=== PATIENT | male | born 1980 | race Caucasian/White ===

== ENCOUNTER 2020-10-23 18:14 | Emergency (ER) | payer OTHER ==
[2020-10-23] MEDS ORDERED: Fentanyl 100 MCG/2 ML VIAL ONE (18:38)
[2020-10-23] MEDS ORDERED: PROPOFOL 20 ML ONE (18:38)
[2020-10-23] MEDS ORDERED: Ondansetron PF 4 MG/2 ML Vial ONE (18:38)
--- NOTE | 2020-10-23 18:56 | RAD ---
Right shoulder 2 views HISTORY: Injury. FINDINGS: There is anterior and inferior displacement of the right humeral head in relation to the ac romion. Humeral head lies immediately inferior to the coracoid process. Acromioclavicular alignment is maintained. No fracture fragments evident. IMPRESSION : Right shoulder dislocation.
--- NOTE | 2020-10-23 19:28 | RAD ---
Right shoulder 2 views HISTORY: Shoulder dislocation. COMPARISON: Earlier exam on the same date. FINDINGS: Glenohumeral alignment is now within normal limits. No fracture fragments are apparent. IMPRESSION : Interval reduction of right shoulder dislocation.
[2020-10-23] MEDS ORDERED: Ketorolac Tromethamine 30 MG/ML VIAL ONE (19:44)
[2020-10-23] MEDS ORDERED: HYDROcodone/Acetaminophen 10/325 mg Tablet ONE (20:26)
== END 2020-10-23 20:32 | disposition home or self-care (01) ==
LOC: ERS 18:14
DX: R56.9 Unspecified convulsions (principal); S43.034A Inferior dislocation of right humerus, initial encounter; S42.141A Displaced fracture of glenoid cavity of scapula, right shoulder, initial encounter for closed fracture; F17.210 Nicotine dependence, cigarettes, uncomplicated; Z79.891 Long term (current) use of opiate analgesic; Z79.899 Other long term (current) drug therapy; W19.XXXA Unspecified fall, initial encounter
CPT/HCPCS: 23650; 96374; 96375; 99152; 99153; J1885; J2405; J2704; J3010

== ENCOUNTER 2023-09-07 22:09 | Emergency (ER) | payer OTHER ==
[2023-09-07] MEDS ORDERED: levETIRAcetam 500 MG TAB ONE (22:45)
[2023-09-07] MEDS ORDERED: LORazepam 2 MG/ML SYR.(CARPUJECT) ONE (22:46)
== END 2023-09-07 22:57 ==
LOC: ERS 22:09
DX: R56.9 Unspecified convulsions (principal); F17.210 Nicotine dependence, cigarettes, uncomplicated
CPT/HCPCS: 96372; 99284; J2060

== ENCOUNTER 2023-12-23 10:13 | Outpatient (CLI) | payer OTHER | END 2023-12-23 10:14 | disposition home or self-care (01) | LOC: SCSRAD 10:13 | PROVIDERS: ATTEND Family Medicine | DX: S49.91XA Unspecified injury of right shoulder and upper arm, initial encounter (principal); S43.014A Anterior dislocation of right humerus, initial encounter ==

== ENCOUNTER 2023-12-23 11:49 | Emergency (ER) | payer OTHER ==
[2023-12-23] MEDS ORDERED: Thiamine HCl 200 MG/2 ML VIAL ONE (12:26)
[2023-12-23 13:10] LABS: #Monocytes 0.4 thou/uL (0.11-0.59); #Neutrophils 4.8 thou/uL (1.40-6.50); %Basophils 0.2 % (0.0-1.0); %Eosinophils 0.2 % (0.0-10.0); %Lymphocytes 10.7 % (21.0-51.0); %Monocytes 6.3 % (0.0-10.0); %Neutrophils 81.8 % (42.0-75.0); Hematocrit 34.6 % (42.0-52.0); Hemoglobin 12.3 g/dL (14.0-18.0); Mean Corpuscular HGB CONC 35.5 g/dL (32.0-36.0); Mean Corpuscular Hemoglobin 35.4 pg (27.0-31.0); Mean Corpuscular Volume 99.7 fl (78.0-98.0); Mean Platelet Volume 10.6 fL (7.4-10.4); RBC Distribution Width 12.9 % (11.5-14.5); Red Blood Cell (RBC) Count 3.47 mill/uL (4.70-6.10); White Blood Cell (WBC) Count 5.9 10x3/uL (4.8-10.8)
[2023-12-23 13:29] LABS: Platelet Count 75 10x3/uL (130-400)
[2023-12-23] MEDS ORDERED: Ondansetron PF 4 MG/2 ML Vial ONE (13:29)
[2023-12-23] MEDS ORDERED: Morphine 4 MG/ML VIAL ONE (13:29)
[2023-12-23 13:32] LABS: ALT (SGPT) 101 U/L (8-55); AST (SGOT) 289 U/L (5-34); Albumin 3.8 g/dL (3.5-5.0); Alkaline Phosphatase 155 U/L (40-110); Anion Gap 16 mmol/L (10-20); BUN (Urea Nitrogen) 7 mg/dL (8.9-20.6); Bilirubin, Total 1.4 mg/dL (0.2-1.2); Calc. Creatinine Clearance 0 mL/min (70-130); Calcium 9.1 mg/dL (7.8-10.44); Carbon Dioxide 23 mmol/L (22-29); Chloride 98 mmol/L (98-107); Estimated GFR 93; Globulin 3.3 g/dL (2.4-3.5); Glucose 125 mg/dL (70-105); Potassium 3.3 mmol/L (3.5-5.1); Protein, Total 7.1 g/dL (6.0-8.3); Sodium 134 mmol/L (136-145)
[2023-12-23 13:34] LABS: Troponin I Less than 0.010 ng/mL (< 0.028)
[2023-12-23] MEDS ORDERED: LORazepam 2 MG/ML SYR.(CARPUJECT) ONE ×2 (15:01→16:37)
[2023-12-23 16:59] LABS: Lactic Acid 1.1 mmol/L (0.5-2.2)
[2023-12-23 17:02] LABS: Acetaminophen Less than 10 mcg/mL (10.0-30.0); Alcohol Less than 10.0 mg/dL (Less than 10); Salicylate Less than 8.0 mg/dL (15.0-30.0)
== END 2023-12-23 17:58 | disposition left against medical advice (07) ==
LOC: ERS 11:49
DX: S43.014A Anterior dislocation of right humerus, initial encounter (principal); E87.6 Hypokalemia; F10.20 Alcohol dependence, uncomplicated; Y90.0 Blood alcohol level of less than 20 mg/100 ml; R00.0 Tachycardia, unspecified; F17.210 Nicotine dependence, cigarettes, uncomplicated; Y92.094 Garage of other non-institutional residence as the place of occurrence of the external cause
CPT/HCPCS: 23650; 36415; 80053; 80307; 83605; 84146; 84484; 85025; 93005; 96374; 96375; 96376; J2060; J2270; J2405; J3411

== ENCOUNTER 2024-03-23 09:06 | Day surgery (SDC) | payer OTHER ==
[2024-03-19 12:21] VITALS: BMI 23.3
[2024-03-23] MEDS ORDERED: Midazolam HCl 2 mg/2 ml Vial ONE ×2 (11:15→12:02)
[2024-03-23] MEDS ORDERED: Lidocaine 1% PF 5 ML VIAL ONE (11:56)
[2024-03-23] MEDS ORDERED: Propofol 500 MG/50 ML VIAL ONE (11:58)
== END 2024-03-23 13:13 | disposition home or self-care (01) ==
LOC: SDC 09:06
PROVIDERS: ATTEND Internal Medicine Gastroenterology
PROC: 0DBK8ZX Excision of Ascending Colon, Via Natural or Artificial Opening Endoscopic, Diagnostic (ICD-10-PCS; principal; 2024-03-23)
DX: Z12.11 Encounter for screening for malignant neoplasm of colon (principal); K52.9 Noninfective gastroenteritis and colitis, unspecified; K64.9 Unspecified hemorrhoids; G40.909 Epilepsy, unspecified, not intractable, without status epilepticus; I10 Essential (primary) hypertension; F17.210 Nicotine dependence, cigarettes, uncomplicated; Z88.5 Allergy status to narcotic agent
CPT/HCPCS: 88305; J2250; J2704

== ENCOUNTER 2024-05-07 17:39 | Inpatient (IN) | payer OTHER ==
[2024-05-07 18:33] LABS: Hematocrit 30.9 % (42.0-52.0); Hemoglobin 10.8 g/dL (14.0-18.0); Mean Corpuscular Hemoglobin 35.6 pg (27.0-31.0); Mean Platelet Volume 12.9 fL (7.4-10.4); Platelet Count 117 10x3/uL (130-400); RBC Distribution Width 14.3 % (11.5-14.5); Red Blood Cell (RBC) Count 3.03 mill/uL (4.70-6.10)
[2024-05-07 18:50] LABS: Troponin I 0.023 ng/mL (< 0.028)
[2024-05-07 18:52] LABS: ALT (SGPT) 88 U/L (8-55); AST (SGOT) 217 U/L (5-34); Albumin 2.4 g/dL (3.5-5.0); Alkaline Phosphatase 224 U/L (40-110); Anion Gap 34 mmol/L (10-20); BUN (Urea Nitrogen) 21 mg/dL (8.9-20.6); CK (CPK) 611 U/L (30-200); Calc. Creatinine Clearance 0 mL/min (70-130); Calcium 7.7 mg/dL (7.8-10.44); Carbon Dioxide 22 mmol/L (22-29); Chloride 71 mmol/L (98-107); Estimated GFR 58; Globulin 4.5 g/dL (2.4-3.5); Glucose 121 mg/dL (70-105); Lipase 41 U/L (8-78); Potassium 2.8 mmol/L (3.5-5.1); Protein, Total 6.9 g/dL (6.0-8.3); Sodium 124 mmol/L (136-145)
[2024-05-07 19:01] LABS: Anisocytosis SLIGHT = 6-15 cells HPF (0-5); Band 9 % (5-11); Eosinophils 1 % (0-10); Large Platelets 15.2 % (0-5); Lymphocytes 2 % (21-51); Macrocytosis SLIGHT = 6-15 cells HPF (0-5); Monocytes 13 % (0-10); Myelocyte 2 % (0-0); Neutrophil 72 % (42-75); Platelet Adequacy Comment Platelets Decreased; Polychromasia SLIGHT = 2-3 cells HPF (0-2); Promyelocytes 1 % (0-0); Target Cells SLIGHT = 2-5 cells HPF (0-1)
[2024-05-07] MEDS ORDERED: Cefepime 2 GM VIAL ONE (20:03)
[2024-05-07] MEDS ORDERED: Sodium Chloride 0.9% 100 ML ONE (20:04)
[2024-05-07 21:16] LABS: Magnesium 1.4 mg/dL (1.6-2.6)
[2024-05-07 23:14] LABS: Base Excess 5.2 mEq/L (-2.0 to +3.0); Chloride (VBG) 80 mmol/L (98-106); Hematocrit-VBG 30 % (42.0-52.0); Hemoglobin (Hb) 10.3 g/dL (13.1-17.2); Sodium 122 mmol/L (133-146); pH (venous) 7.572 (7.32-7.43)
[2024-05-07] MEDS ORDERED: CALCIUM GLUC 1 GM/NS 50 ML IV Bag ONE (23:16)
[2024-05-07] MEDS ORDERED: Potassium Chloride 20 MEQ (100 mL) BAG ONE (23:16)
[2024-05-07] MEDS ORDERED: Magnesium 2 GM/50 ML BAG (IN WATER) ONE (23:16)
[2024-05-07 23:35] LABS: Lactic Acid 9.1 mmol/L (0.5-2.2)
[2024-05-07 23:45] LABS: Anion Gap 22 mmol/L (10-20); BUN (Urea Nitrogen) 21 mg/dL (8.9-20.6); Calc. Creatinine Clearance 0 mL/min (70-130); Calcium 6.9 mg/dL (7.8-10.44); Carbon Dioxide 25 mmol/L (22-29); Chloride 78 mmol/L (98-107); Estimated GFR 79; Glucose 91 mg/dL (70-105); Potassium 2.2 mmol/L (3.5-5.1); Sodium 123 mmol/L (136-145)
[2024-05-08] MEDS ORDERED: Ondansetron ODT 4 MG TAB PO PRN ×2 (00:49→00:57)
[2024-05-08] MEDS ORDERED: Lorazepam 1 MG TAB PO PRN (00:49)
[2024-05-08] MEDS ORDERED: Lorazepam 2 MG/ML VIAL IM PRN (00:49)
[2024-05-08] MEDS ORDERED: Ondansetron PF 4 MG/2 ML Vial IVP PRN (00:57)
[2024-05-08] MEDS ORDERED: Acetaminophen 650 MG Suppository PR PRN (00:57)
[2024-05-08] MEDS ORDERED: Electrolyte Replacement Protocol 1 EACH FS SCH (01:00)
[2024-05-08] MEDS ORDERED: Dextrose 5%-Lactated Ringers 1,000 ML IV SCH (01:00)
[2024-05-08] MEDS: Magnesium 2 GM/50 ML(in water) 2 GM in Premix 1 BAG IVPB SCH ×2 (01:24→20:28)
[2024-05-08] MEDS: Vancomycin (BATCH) 1.5 GM in Premix 1 BAG IVPB SCH (01:25)
[2024-05-08] MEDS: Potassium Chloride 20 MEQ in Premix 1 BAG IVPB SCH ×2 (01:25→08:59)
[2024-05-08] MEDS: Thiamine HCl 200 MG/2 ML VIAL SLOW IVP SCH (01:35)
[2024-05-08] MEDS: Albumin 25% 25 GM (100 mL) BOT IVPB SCH (01:35)
[2024-05-08] MEDS: Lorazepam 1 MG TAB PO SCH (01:36)
[2024-05-08 01:47] VITALS: BMI 21.9
[2024-05-08] MEDS: Sodium Chloride 0.9% 1,000 ML IV SCH ×2 (02:40→13:25)
[2024-05-08] MEDS: CALCIUM GLUC 1 GM/NS 50 ML 1 GM in Premix 1 BAG IVPB SCH (03:04)
[2024-05-08] MEDS: Calcium Gluconate 4.6 MEQ in Sodium Chloride 0.9% 100 ML IVPB ONE (03:04)
[2024-05-08 07:21] LABS: INR-International Normal Ratio 1.2; Prothrombin Time 14.8 sec (12.0-14.7)
[2024-05-08 07:22] LABS: PTT 35.2 sec (22.9-36.1)
[2024-05-08 07:28] LABS: Lactic Acid 3.9 mmol/L (0.5-2.2)
[2024-05-08 07:45] LABS: ALT (SGPT) 65 U/L (8-55); AST (SGOT) 157 U/L (5-34); Albumin 2.2 g/dL (3.5-5.0); Alkaline Phosphatase 147 U/L (40-110); Anion Gap 14 mmol/L (10-20); BUN (Urea Nitrogen) 19 mg/dL (8.9-20.6); Bilirubin, Total 8.4 mg/dL (0.2-1.2); Calc. Creatinine Clearance 100 mL/min (70-130); Calcium 7.1 mg/dL (7.8-10.44); Carbon Dioxide 31 mmol/L (22-29); Chloride 83 mmol/L (98-107); Estimated GFR 105; Glucose 122 mg/dL (70-105); Potassium 2.4 mmol/L (3.5-5.1); Protein, Total 5.2 g/dL (6.0-8.3); Sodium 126 mmol/L (136-145)
[2024-05-08 07:49] LABS: Hematocrit 22.8 % (42.0-52.0); Hemoglobin 7.9 g/dL (14.0-18.0); Mean Corpuscular HGB CONC 34.6 g/dL (32.0-36.0); Mean Corpuscular Hemoglobin 35.9 pg (27.0-31.0); Mean Corpuscular Volume 103.6 fL (78.0-98.0); Mean Platelet Volume 12.4 fL (7.4-10.4); Platelet Count 84 10x3/uL (130-400); RBC Distribution Width 14.2 % (11.5-14.5)
[2024-05-08] MEDS: Folic Acid 1 MG TAB PO SCH (08:12)
[2024-05-08] MEDS: Famotidine 20 MG TAB PO SCH (08:12)
[2024-05-08] MEDS: Multivit, Therapeutic 1 TAB PO SCH (08:12)
[2024-05-08 08:31] LABS: Amphetamine Not Detected (NotDetected); Barbiturates Screen Not Detected (NotDetected); Benzodiazepine Screen Not Detected (NotDetected); Cocaine Metabolite Screen Not Detected (NotDetected); Methadone Not Detected (NotDetected); Methamphetamine Not Detected (NotDetected); Opiate Screen Detected (NotDetected); Oxycodone Screen Not Detected (NotDetected); Phencyclidine (PCP) Not Detected (NotDetected); THC/Cannabinoid Screen Not Detected (NotDetected); Tricyclic Screen Not Detected (NotDetected)
[2024-05-08] MEDS ORDERED: Famotidine/PF 20 mg/2ml Vial SLOW IVP SCH (09:00)
[2024-05-08] MEDS ORDERED: Multivitamins, Adult 10 ML, Thiamine HCl 100 MG, Folic Acid 1 MG in Dextrose 5 %-0.45 %... IV SCH (09:00)
[2024-05-08 09:03] LABS: Anisocytosis SLIGHT = 6-15 cells HPF (0-5); Band 15 % (5-11); Eosinophils 1 % (0-10); Large Platelets 5.8 % (0-5); Lymphocytes 5 % (21-51); Macrocytosis SLIGHT = 6-15 cells HPF (0-5); Monocytes 3 % (0-10); Neutrophil 76 % (42-75); Platelet Adequacy Comment Significant Decrease; Polychromasia SLIGHT = 2-3 cells HPF (0-2); Reactive Lymphocytes 1 % (0-10); Stomatocytes SLIGHT = 2-5 cells HPF (0-1); Target Cells MODERATE= 6-15 cells HPF (0-1)
[2024-05-08] MEDS: HYDROcodone/Acetaminophen 5/325 mg Tablet PO PRN (12:17)
[2024-05-08 12:33] LABS: Anion Gap 17 mmol/L (10-20); BUN (Urea Nitrogen) 19 mg/dL (8.9-20.6); Calc. Creatinine Clearance 108 mL/min (70-130); Calcium 7.1 mg/dL (7.8-10.44); Carbon Dioxide 28 mmol/L (22-29); Chloride 84 mmol/L (98-107); Estimated GFR 109; Glucose 89 mg/dL (70-105); Magnesium 1.7 mg/dL (1.6-2.6); Potassium 2.8 mmol/L (3.5-5.1); Sodium 126 mmol/L (136-145)
[2024-05-08 12:36] LABS: Lactic Acid 4.9 mmol/L (0.5-2.2)
[2024-05-08] MEDS: Nicotine 21 MG PATCH TOP SCH (14:48)
[2024-05-08 23:09] LABS: Campy jejuni + coli by PCR Negative (Negative); STEC Shiga Toxin 1+2 Negative (Negative); Salmonella spp. by PCR Negative (Negative); Shigella spp + EIEC by PCR Negative (Negative)
[2024-05-09 09:41] LABS: #Basophils 0.05 10x3/uL (0.0-0.2); %Basophils 0.3 % (0.0-1.0); %Eosinophils 0.4 % (0.0-10.0); %Lymphocytes 16.3 % (21.0-51.0); %Monocytes 4.8 % (0.0-10.0); %Neutrophils 60.9 % (42.0-75.0); Hemoglobin 7.6 g/dL (14.0-18.0); Mean Corpuscular HGB CONC 34.1 g/dL (32.0-36.0); Mean Corpuscular Hemoglobin 36.6 pg (27.0-31.0); Mean Corpuscular Volume 107.5 fL (78.0-98.0); Mean Platelet Volume 12.2 fL (7.4-10.4); Platelet Count 71 10x3/uL (130-400); RBC Distribution Width 14.6 % (11.5-14.5); Red Blood Cell (RBC) Count 2.13 mill/uL (4.70-6.10)
[2024-05-09 10:00] LABS: Anisocytosis MARKED = >30 cells HPF (0-5); Band 10 % (5-11); Large Platelets 3.4 % (0-5); Lymphocytes 9 % (21-51); Macrocytosis MARKED = >30 cells HPF (0-5); Metamyelocyte 3 % (0-0); Monocytes 6 % (0-10); Myelocyte 1 % (0-0); Neutrophil 71 % (42-75); Nucleated RBC (Manual Ct) 3 % (0); Ovalocytes SLIGHT = 2-5 cells HPF (0-1); Plasma Cells 1 % (0-0); Platelet Adequacy Comment Platelets Decreased; Polychromasia SLIGHT = 2-3 cells HPF (0-2); RBC Morphology 2; Target Cells MODERATE= 6-15 cells HPF (0-1)
[2024-05-09 10:40] LABS: ALT (SGPT) 100 U/L (8-55); AST (SGOT) 203 U/L (5-34); Albumin 2.1 g/dL (3.5-5.0); Alkaline Phosphatase 173 U/L (40-110); Anion Gap 13 mmol/L (10-20); BUN (Urea Nitrogen) 10 mg/dL (8.9-20.6); Bilirubin, Direct 6.1 mg/dL (0.1-0.3); Bilirubin, Total 7.8 mg/dL (0.2-1.2); Calc. Creatinine Clearance 146 mL/min (70-130); Calcium 7.2 mg/dL (7.8-10.44); Carbon Dioxide 23 mmol/L (22-29); Chloride 95 mmol/L (98-107); Estimated GFR 118; Glucose 122 mg/dL (70-105); Potassium 2.7 mmol/L (3.5-5.1); Protein, Total 5.1 g/dL (6.0-8.3); Sodium 128 mmol/L (136-145)
[2024-05-09] MEDS ORDERED: Potassium Bicarbonate/Cit Ac 20 MEQ TAB PO SCH (11:00)
[2024-05-09] MEDS: NS 0.9% w/ 20 MEQ KCL 1,000 ML/1,000 ML BAG IV SCH (11:36)
[2024-05-09] MEDS: Potassium Chloride 20 MEQ TAB PO SCH ×2 (11:36→17:39)
[2024-05-09] MEDS: Vancomycin HCl 125 MG Capsule PO SCH (11:36)
[2024-05-09] MEDS: Loperamide HCl 2 MG CAP PO PRN (11:41)
[2024-05-09] MEDS: Lorazepam 1 MG TAB PO PRN (21:46)
[2024-05-09] MEDS ORDERED: Dexmedetomidine In 0.9 % NaCl 100 ML IVPB SCH (23:45)
[2024-05-10] MEDS: Lorazepam 0.5 MG TAB PO SCH
[2024-05-10 01:21] LABS: Hematocrit 19.9 % (42.0-52.0); Hemoglobin 6.7 g/dL (14.0-18.0); Mean Corpuscular HGB CONC 33.7 g/dL (32.0-36.0); Mean Corpuscular Hemoglobin 36.8 pg (27.0-31.0); Mean Corpuscular Volume 109.3 fL (78.0-98.0); Mean Platelet Volume 12.4 fL (7.4-10.4); Platelet Count 55 10x3/uL (130-400); RBC Distribution Width 14.9 % (11.5-14.5); Red Blood Cell (RBC) Count 1.82 mill/uL (4.70-6.10)
[2024-05-10 02:09] LABS: Anisocytosis MODERATE=16-30 cells HPF (0-5); Band 20 % (5-11); Hypochromia SLIGHT = 6-15 cells HPF (0-5); Lymphocytes 12 % (21-51); Macrocytosis SLIGHT = 6-15 cells HPF (0-5); Metamyelocyte 3 % (0-0); Monocytes 11 % (0-10); Myelocyte 4 % (0-0); Neutrophil 51 % (42-75); Nucleated RBC (Manual Ct) 2 % (0); Platelet Adequacy Comment Platelets Decreased; RBC Morphology 2; Smudge Cells 15.4 %; Stomatocytes MODERATE= 6-15 cells HPF (0-1)
[2024-05-10 02:28] LABS: Lactic Acid 2.5 mmol/L (0.5-2.2)
[2024-05-10 02:33] LABS: ALT (SGPT) 114 U/L (8-55); AST (SGOT) 187 U/L (5-34); Albumin 1.9 g/dL (3.5-5.0); Alkaline Phosphatase 173 U/L (40-110); Anion Gap 13 mmol/L (10-20); BUN (Urea Nitrogen) 6 mg/dL (8.9-20.6); Bilirubin, Total 7.7 mg/dL (0.2-1.2); Calc. Creatinine Clearance 175 mL/min (70-130); Calcium 7.2 mg/dL (7.8-10.44); Carbon Dioxide 20 mmol/L (22-29); Chloride 99 mmol/L (98-107); Estimated GFR 125; Glucose 107 mg/dL (70-105); Magnesium 1.5 mg/dL (1.6-2.6); Potassium 3.7 mmol/L (3.5-5.1); Protein, Total 4.9 g/dL (6.0-8.3); Sodium 128 mmol/L (136-145)
[2024-05-10] MEDS: Magnesium 2 GM/50 ML(in water) 2 GM in Premix 1 BAG IVPB SCH ×2 (03:13→17:40)
[2024-05-10] MEDS: Lorazepam 1 MG TAB PO PRN (03:22)
[2024-05-10 04:16] LABS: Phosphorus Less than 0.7 mg/dL (2.3-4.7)
[2024-05-10] MEDS: Potassium Phosphate 30 MMOL in Sodium Chloride 0.9% 500 ML IVPB SCH (05:04)
[2024-05-10] MEDS: Albumin 25% 25 GM (100 mL) BOT IVPB SCH (05:04)
[2024-05-10 13:39] LABS: %Basophils 0.4 % (0.0-1.0); %Eosinophils 0.2 % (0.0-10.0); %Lymphocytes 12.4 % (21.0-51.0); %Monocytes 7.7 % (0.0-10.0); %Neutrophils 59.7 % (42.0-75.0); Hematocrit 22.3 % (42.0-52.0); Hemoglobin 7.7 g/dL (14.0-18.0); Mean Corpuscular HGB CONC 34.5 g/dL (32.0-36.0); Mean Corpuscular Hemoglobin 35.5 pg (27.0-31.0); Mean Corpuscular Volume 102.8 fL (78.0-98.0); Mean Platelet Volume 12.5 fL (7.4-10.4); Platelet Count 43 10x3/uL (130-400); RBC Distribution Width 17.3 % (11.5-14.5); Red Blood Cell (RBC) Count 2.17 mill/uL (4.70-6.10)
[2024-05-10 14:02] LABS: Phosphorus 0.8 mg/dL (2.3-4.7)
[2024-05-10] MEDS ORDERED: Potassium Phosphate 30 MMOL in Sodium Chloride 0.9% 250 ML 250 ML IVPB SCH (15:15)
[2024-05-10] MEDS: Potassium Phosphate 30 MMOL in Sodium Chloride 0.9% 250 ML 250 ML IVPB SCH (17:39)
[2024-05-10] MEDS: PHOS-NAK 1 PKT PACK PO SCH (20:14)
[2024-05-11] MEDS: Lorazepam 0.5 MG TAB PO PRN (03:06)
[2024-05-11 05:18] LABS: Hematocrit 19.1 % (42.0-52.0); Hemoglobin 6.4 g/dL (14.0-18.0); Mean Corpuscular HGB CONC 33.5 g/dL (32.0-36.0); Mean Corpuscular Volume 107.3 fL (78.0-98.0); Platelet Count 44 10x3/uL (130-400); RBC Distribution Width 18.8 % (11.5-14.5); Red Blood Cell (RBC) Count 1.78 mill/uL (4.70-6.10)
[2024-05-11 05:22] LABS: ALT (SGPT) 75 U/L (8-55); AST (SGOT) 129 U/L (5-34); Albumin 2.9 g/dL (3.5-5.0); Alkaline Phosphatase 151 U/L (40-110); Anion Gap 14 mmol/L (10-20); BUN (Urea Nitrogen) 5 mg/dL (8.9-20.6); Bilirubin, Total 7.8 mg/dL (0.2-1.2); Calc. Creatinine Clearance 174 mL/min (70-130); Carbon Dioxide 19 mmol/L (22-29); Chloride 106 mmol/L (98-107); Estimated GFR 122; Glucose 110 mg/dL (70-105); Magnesium 2.1 mg/dL (1.6-2.6); Potassium 3.9 mmol/L (3.5-5.1); Protein, Total 4.9 g/dL (6.0-8.3); Sodium 135 mmol/L (136-145)
[2024-05-11 05:51] LABS: Phosphorus 1.1 mg/dL (2.3-4.7)
[2024-05-11 06:05] LABS: Anisocytosis SLIGHT = 6-15 cells HPF (0-5); Band 14 % (5-11); Eosinophils 1 % (0-10); Lymphocytes 6 % (21-51); Macrocytosis SLIGHT = 6-15 cells HPF (0-5); Metamyelocyte 10 % (0-0); Monocytes 9 % (0-10); Myelocyte 6 % (0-0); Neutrophil 51 % (42-75); Nucleated RBC (Manual Ct) 10 % (0); Platelet Adequacy Comment Platelets Decreased; Polychromasia SLIGHT = 2-3 cells HPF (0-2); Reactive Lymphocytes 1 % (0-10); Smudge Cells 4.6 %; Stomatocytes SLIGHT = 2-5 cells HPF (0-1)
[2024-05-11] MEDS: PHOS-NAK 1 PKT PACK PO SCH (06:06)
[2024-05-11] MEDS: Calcium Chloride 1 GM/10 ML Abboject SYRINGE IVP SCH (06:56)
[2024-05-11] MEDS: Furosemide 20 MG (2 mL) VIAL SLOW IVP SCH (06:56)
[2024-05-11] MEDS: Thiamine 100 MG TAB PO SCH (08:03)
[2024-05-11] MEDS: Acetaminophen 325 MG TAB PO PRN (08:10)
[2024-05-11] MEDS: Sodium Phosphate 40 MMOL in Sodium Chloride 0.9% 250 ML 250 ML IVPB SCH (09:16)
[2024-05-11 10:01] LABS: Iron 68 ug/dL (65-175)
[2024-05-11 10:53] LABS: Ferritin 10916.62 ng/mL (22-322)
[2024-05-11 10:54] LABS: Vitamin B12 Greater than 2000 pg/mL (211-911)
[2024-05-11 13:04] LABS: Hematocrit 23.9 % (42.0-52.0); Hemoglobin 8.1 g/dL (14.0-18.0); Platelet Count 44 10x3/uL (130-400)
[2024-05-11 13:16] LABS: Fibrinogen 194 mg/dL (253-463)
[2024-05-11 13:17] LABS: INR-International Normal Ratio 1.3; PTT 37.3 sec (22.9-36.1); Prothrombin Time 16.1 sec (12.0-14.7)
[2024-05-11 13:23] LABS: D-Dimer Test 1.55 mcg/mL (0.27-0.43)
[2024-05-11 13:35] LABS: Phosphorus 2.1 mg/dL (2.3-4.7)
[2024-05-11 14:11] LABS: Iron Binding Capacity, Total 55 mcg/dL (261-462)
[2024-05-11 15:06] LABS: Calcium, Ionized (venous) 0.76 mmol/L (1.16-1.32)
[2024-05-12 00:14] LABS: Hematocrit 22.8 % (42.0-52.0); Hemoglobin 7.8 g/dL (14.0-18.0); Platelet Count 44 10x3/uL (130-400)
[2024-05-12 04:49] LABS: Hematocrit 23.3 % (42.0-52.0); Hemoglobin 7.8 g/dL (14.0-18.0); Mean Corpuscular HGB CONC 33.5 g/dL (32.0-36.0); Mean Corpuscular Hemoglobin 34.2 pg (27.0-31.0); Mean Corpuscular Volume 102.2 fL (78.0-98.0); Mean Platelet Volume 12.9 fL (7.4-10.4); Platelet Count 46 10x3/uL (130-400); RBC Distribution Width 22.6 % (11.5-14.5); Red Blood Cell (RBC) Count 2.28 mill/uL (4.70-6.10)
[2024-05-12 04:57] LABS: ALT (SGPT) 77 U/L (8-55); AST (SGOT) 126 U/L (5-34); Albumin 2.5 g/dL (3.5-5.0); Alkaline Phosphatase 152 U/L (40-110); Anion Gap 16 mmol/L (10-20); BUN (Urea Nitrogen) Less than 4 mg/dL (8.9-20.6); Bilirubin, Total 7.9 mg/dL (0.2-1.2); Calc. Creatinine Clearance 177 mL/min (70-130); Calcium 7.2 mg/dL (7.8-10.44); Carbon Dioxide 16 mmol/L (22-29); Chloride 107 mmol/L (98-107); Estimated GFR 123; Globulin 2.4 g/dL (2.4-3.5); Glucose 99 mg/dL (70-105); Magnesium 1.6 mg/dL (1.6-2.6); Potassium 3.1 mmol/L (3.5-5.1); Protein, Total 4.9 g/dL (6.0-8.3); Sodium 136 mmol/L (136-145)
[2024-05-12 05:08] LABS: Phosphorus 1.6 mg/dL (2.3-4.7)
[2024-05-12] MEDS: Magnesium 2 GM/50 ML(in water) 2 GM in Premix 1 BAG IVPB SCH (05:35)
[2024-05-12 06:16] LABS: Anisocytosis SLIGHT = 6-15 cells HPF (0-5); Band 17 % (5-11); Lymphocytes 7 % (21-51); Macrocytosis SLIGHT = 6-15 cells HPF (0-5); Metamyelocyte 6 % (0-0); Monocytes 5 % (0-10); Myelocyte 7 % (0-0); Neutrophil 58 % (42-75); Nucleated RBC (Manual Ct) 29 % (0); Platelet Adequacy Comment Platelets Decreased; Polychromasia SLIGHT = 2-3 cells HPF (0-2); Smudge Cells 16.8 %; Toxic Granulation SLIGHT
[2024-05-12] MEDS: PHOS-NAK 1 PKT PACK PO SCH (07:03)
[2024-05-12] MEDS ORDERED: Potassium Chloride 20 MEQ TAB PO SCH (08:00)
[2024-05-12] MEDS: Potassium Phosphate 15 MMOL in Sodium Chloride 0.9% 100 ML IVPB SCH (09:09)
[2024-05-12] MEDS: Potassium Chloride 20 MEQ in Premix 1 BAG IVPB SCH (09:09)
[2024-05-13 05:17] LABS: Hematocrit 24.1 % (42.0-52.0); Hemoglobin 7.9 g/dL (14.0-18.0); Mean Corpuscular HGB CONC 32.8 g/dL (32.0-36.0); Mean Corpuscular Volume 106.6 fL (78.0-98.0); Mean Platelet Volume 12.3 fL (7.4-10.4); Platelet Count 62 10x3/uL (130-400); RBC Distribution Width 23.1 % (11.5-14.5); Red Blood Cell (RBC) Count 2.26 mill/uL (4.70-6.10)
[2024-05-13 05:43] LABS: Anisocytosis MODERATE=16-30 cells HPF (0-5); Band 8 % (5-11); Eosinophils 1 % (0-10); Large Platelets 4.8 % (0-5); Lymphocytes 8 % (21-51); Macrocytosis SLIGHT = 6-15 cells HPF (0-5); Metamyelocyte 4 % (0-0); Monocytes 10 % (0-10); Myelocyte 5 % (0-0); Neutrophil 64 % (42-75); Nucleated RBC (Manual Ct) 26 % (0); Platelet Adequacy Comment Platelets Decreased; Polychromasia SLIGHT = 2-3 cells HPF (0-2); Smudge Cells 29.8 %
[2024-05-13 05:51] LABS: ALT (SGPT) 72 U/L (8-55); AST (SGOT) 114 U/L (5-34); Albumin 2.4 g/dL (3.5-5.0); Alkaline Phosphatase 137 U/L (40-110); Anion Gap 10 mmol/L (10-20); BUN (Urea Nitrogen) Less than 4 mg/dL (8.9-20.6); Bilirubin, Total 7.2 mg/dL (0.2-1.2); Calc. Creatinine Clearance 174 mL/min (70-130); Calcium 7.4 mg/dL (7.8-10.44); Carbon Dioxide 18 mmol/L (22-29); Chloride 110 mmol/L (98-107); Estimated GFR 121; Globulin 2.6 g/dL (2.4-3.5); Glucose 91 mg/dL (70-105); Magnesium 1.8 mg/dL (1.6-2.6); Potassium 3.5 mmol/L (3.5-5.1); Sodium 134 mmol/L (136-145)
[2024-05-13] MEDS: Magnesium 2 GM/50 ML(in water) 2 GM in Premix 1 BAG IVPB SCH (09:18)
[2024-05-13] MEDS: Potassium Chloride 20 MEQ in Premix 1 BAG IVPB SCH (09:18)
[2024-05-13] MEDS: cloNIDine 0.2mg/24 Hour PATCH TD SCH (09:52)
[2024-05-13] MEDS ORDERED: hydrOXYzine 25 MG TAB PO PRN (10:13)
[2024-05-13] MEDS: clonazePAM 1 MG TAB PO SCH (11:16)
[2024-05-13] MEDS: Loperamide HCl 2 MG CAP PO SCH (11:16)
[2024-05-13] MEDS: Furosemide 40 MG (4 mL) VIAL SLOW IVP SCH (11:16)
[2024-05-13] MEDS: Potassium Chloride 20 MEQ TAB PO SCH (11:17)
[2024-05-13] MEDS: hydrOXYzine 25 MG TAB PO PRN (21:03)
[2024-05-14 07:56] LABS: ALT (SGPT) 61 U/L (8-55); AST (SGOT) 102 U/L (5-34); Albumin 2.3 g/dL (3.5-5.0); Alkaline Phosphatase 127 U/L (40-110); Anion Gap 11 mmol/L (10-20); BUN (Urea Nitrogen) 5 mg/dL (8.9-20.6); Bilirubin, Total 7.5 mg/dL (0.2-1.2); Calc. Creatinine Clearance 179 mL/min (70-130); Calcium 7.5 mg/dL (7.8-10.44); Carbon Dioxide 16 mmol/L (22-29); Chloride 113 mmol/L (98-107); Estimated GFR 123; Globulin 2.8 g/dL (2.4-3.5); Glucose 81 mg/dL (70-105); Magnesium 1.8 mg/dL (1.6-2.6); Potassium 4.1 mmol/L (3.5-5.1); Protein, Total 5.1 g/dL (6.0-8.3); Sodium 136 mmol/L (136-145)
[2024-05-14 07:57] LABS: Critical Call Chemistry NUR.SVS@0800; Phosphorus 1.5 mg/dL (2.3-4.7)
[2024-05-14 08:04] LABS: #Basophils 0.03 10x3/uL (0.0-0.2); %Basophils 0.2 % (0.0-1.0); %Eosinophils 1.3 % (0.0-10.0); %Lymphocytes 17.5 % (21.0-51.0); %Monocytes 7.6 % (0.0-10.0); %Neutrophils 68.3 % (42.0-75.0); Hematocrit 23.2 % (42.0-52.0); Hemoglobin 7.7 g/dL (14.0-18.0); Mean Corpuscular HGB CONC 33.2 g/dL (32.0-36.0); Mean Corpuscular Hemoglobin 36.7 pg (27.0-31.0); Mean Corpuscular Volume 110.5 fL (78.0-98.0); Mean Platelet Volume 12.4 fL (7.4-10.4); Platelet Count 72 10x3/uL (130-400); RBC Distribution Width 23.4 % (11.5-14.5)
[2024-05-14] MEDS ORDERED: Non-Formulary Item 1 EACH (Potassium Citrate [Potassium] 99 MG Capsule) PO SCH (09:00)
[2024-05-14] MEDS: Magnesium 2 GM/50 ML(in water) 2 GM in Premix 1 BAG IVPB SCH (09:46)
[2024-05-14] MEDS: Furosemide 40 MG (4 mL) VIAL SLOW IVP SCH (09:49)
[2024-05-14] MEDS: Spironolactone 25 MG TAB PO SCH (09:50)
[2024-05-14] MEDS: PHOS-NAK 1 PKT PACK PO SCH (09:50)
[2024-05-14] MEDS: Escitalopram Oxalate 10 mg Tablet PO SCH (09:50)
[2024-05-14] MEDS: Furosemide 20 MG TAB PO SCH (09:50)
[2024-05-14] MEDS: Potassium Phosphate 30 MMOL in Sodium Chloride 0.9% 250 ML 250 ML IVPB SCH (10:04)
[2024-05-14 11:58] VITALS: BMI 24.8
[2024-05-14] MEDS: Potassium Chloride 8 MEQ TAB PO SCH (12:37)
[2024-05-15 05:06] LABS: Hematocrit 22.6 % (42.0-52.0); Hemoglobin 7.3 g/dL (14.0-18.0); Mean Corpuscular HGB CONC 32.3 g/dL (32.0-36.0); Mean Corpuscular Volume 111.3 fL (78.0-98.0); Mean Platelet Volume 12.6 fL (7.4-10.4); Platelet Count 77 10x3/uL (130-400); RBC Distribution Width 23.6 % (11.5-14.5); Red Blood Cell (RBC) Count 2.03 mill/uL (4.70-6.10)
[2024-05-15 05:21] LABS: Anion Gap 11 mmol/L (10-20); BUN (Urea Nitrogen) 6 mg/dL (8.9-20.6); Calc. Creatinine Clearance 196 mL/min (70-130); Calcium 7.5 mg/dL (7.8-10.44); Carbon Dioxide 18 mmol/L (22-29); Chloride 112 mmol/L (98-107); Estimated GFR 126; Glucose 79 mg/dL (70-105); Magnesium 1.9 mg/dL (1.6-2.6); Potassium 4.3 mmol/L (3.5-5.1); Sodium 137 mmol/L (136-145)
[2024-05-15 05:27] LABS: Phosphorus 1.8 mg/dL (2.3-4.7)
[2024-05-15 05:41] LABS: Anisocytosis SLIGHT = 6-15 cells HPF (0-5); Band 7 % (5-11); Hypochromia SLIGHT = 6-15 cells HPF (0-5); Lymphocytes 20 % (21-51); Macrocytosis SLIGHT = 6-15 cells HPF (0-5); Monocytes 2 % (0-10); Neutrophil 70 % (42-75); Nucleated RBC (Manual Ct) 2 % (0); Platelet Adequacy Comment Platelets Decreased; Poikilocytosis SLIGHT = 6-15 cells HPF (0-5); Polychromasia SLIGHT = 2-3 cells HPF (0-2)
[2024-05-15] MEDS: PHOS-NAK 1 PKT PACK PO SCH (09:16)
[2024-05-15] MEDS: Magnesium Sulfate 3 GM in Sodium Chloride 0.9% 100 ML IVPB SCH (10:08)
[2024-05-15] MEDS: Furosemide 40 MG (4 mL) VIAL SLOW IVP SCH (15:00)
[2024-05-15 17:12] VITALS: TEMP 98.9
[2024-05-15 18:07] VITALS: BP 112/75
== END 2024-05-15 19:17 | disposition home or self-care (01) | DRG 872 ==
LOC: ERS 17:39 → IMCU/EMU 23:18 → SURG B 05-12 10:53
PROVIDERS: ADMIT Student in an Organized Health Care Education/Training Program; ATTEND Internal Medicine
PROC: 3E03329 Introduction of Other Anti-infective into Peripheral Vein, Percutaneous Approach (ICD-10-PCS; 2024-05-07)
PROC: 30233J1 Transfusion of Nonautologous Serum Albumin into Peripheral Vein, Percutaneous Approach (ICD-10-PCS; 2024-05-08)
PROC: 30233N1 Transfusion of Nonautologous Red Blood Cells into Peripheral Vein, Percutaneous Approach (ICD-10-PCS; principal; 2024-05-10)
DX: A41.9 Sepsis, unspecified organism (principal); A04.72 Enterocolitis due to Clostridium difficile, not specified as recurrent; E87.20 Acidosis, unspecified; E87.1 Hypo-osmolality and hyponatremia; F10.239 Alcohol dependence with withdrawal, unspecified; E86.0 Dehydration; K70.30 Alcoholic cirrhosis of liver without ascites; K70.10 Alcoholic hepatitis without ascites; D64.9 Anemia, unspecified; E87.70 Fluid overload, unspecified; D69.6 Thrombocytopenia, unspecified; G43.909 Migraine, unspecified, not intractable, without status migrainosus; F41.9 Anxiety disorder, unspecified; F17.210 Nicotine dependence, cigarettes, uncomplicated; E87.6 Hypokalemia; E83.51 Hypocalcemia; E83.42 Hypomagnesemia; E88.09 Other disorders of plasma-protein metabolism, not elsewhere classified; Z79.899 Other long term (current) drug therapy; Z88.8 Allergy status to other drugs, medicaments and biological substances; Z98.890 Other specified postprocedural states
CPT/HCPCS: 36415; 36430; 71045; 74176; 80048; 80053; 80076; 80306; 80307; 82550; 82607; 82728; 82805; 83540; 83550; 83605; 83615; 83690; 83735; 83880; 84100; 84300; 84484; 85025; 85046; 85049; 85300; 85362; 85384; 85610; 85730; 86850; 86900; 86901; 87040; 87324; 87449; 87493; 87505; 93005; J0613; J0692; J1940; J3370; J3411; J3475; J3480; J3490; J7030; J7042; J7050; P9016; P9047

== ENCOUNTER 2024-09-01 11:14 | Outpatient (CLI) | payer OTHER | END 2024-09-01 11:15 | disposition home or self-care (01) | LOC: MRI 11:14 | PROVIDERS: ATTEND Orthopaedic Surgery | DX: M24.411 Recurrent dislocation, right shoulder (principal); M25.411 Effusion, right shoulder; M65.811 Other synovitis and tenosynovitis, right shoulder; M75.111 Incomplete rotator cuff tear or rupture of right shoulder, not specified as traumatic; M21.821 Other specified acquired deformities of right upper arm ==

== ENCOUNTER 2024-10-04 14:21 | Inpatient (IN) | payer OTHER ==
[~2024-10-04 14:21] MED LIST: Iopamidol-370 76% 500 ML MDV (1 ML CHARGE) ONE
[2024-10-04] MEDS ORDERED: Ketorolac Tromethamine 30 MG (1 mL) VIAL ONE (15:37)
[2024-10-04] MEDS ORDERED: Ondansetron PF 4 MG/2 ML Vial ONE (15:37)
[2024-10-04] MEDS ORDERED: Lorazepam 2 MG/ML VIAL ONE (15:38)
[2024-10-04 16:24] LABS: Lipase 104 U/L (8-78); Magnesium 2.2 mg/dL (1.6-2.6)
[2024-10-04 16:25] LABS: ALT (SGPT) 88 U/L (8-55); AST (SGOT) 540 U/L (5-34); Acetaminophen Less than 10 mcg/mL (Less than 10); Albumin 2.2 g/dL (3.5-5.0); Alcohol 398.7 mg/dL (Less than 10); Alkaline Phosphatase 226 U/L (40-110); Anion Gap 17 mmol/L (10-20); BUN (Urea Nitrogen) 12 mg/dL (8.9-20.6); Bilirubin, Total 6.1 mg/dL (0.2-1.2); CK (CPK) 161 U/L (30-200); Calc. Creatinine Clearance 0 mL/min (70-130); Calcium 7.6 mg/dL (7.8-10.44); Carbon Dioxide 27 mmol/L (22-29); Chloride 86 mmol/L (98-107); Estimated GFR 92; Globulin 4.5 g/dL (2.4-3.5); Glucose 116 mg/dL (70-105); Potassium 2.7 mmol/L (3.5-5.1); Protein, Total 6.7 g/dL (6.0-8.3); Salicylate Less than 8.0 mg/dL (Less than 8.0); Sodium 127 mmol/L (136-145)
[2024-10-04] MEDS ORDERED: cefTRIAXone (ROCEPHIN) 2 GM VIAL ONE (16:44)
[2024-10-04] MEDS ORDERED: Sodium Chloride 0.9% 100 ML ONE (16:44)
[2024-10-04] MEDS ORDERED: Potassium Chloride 20 MEQ TAB ONE (17:03)
[2024-10-04] MEDS ORDERED: Thiamine HCl 200 MG/2 ML VIAL ONE (17:12)
[2024-10-04 17:15] LABS: #Basophils Less than 0.03 10x3/uL (0.0-0.2); #Eosinophils Less than 0.03 10x3/uL (0.0-0.7); %Basophils 0.2 % (0.0-1.0); %Lymphocytes 9.7 % (21.0-51.0); %Monocytes 6.2 % (0.0-10.0); %Neutrophils 82.2 % (42.0-75.0); Hematocrit 28.4 % (42.0-52.0); Hemoglobin 11.6 g/dL (14.0-18.0); Mean Corpuscular HGB CONC 40.8 g/dL (32.0-36.0); Mean Corpuscular Hemoglobin 36.6 pg (27.0-31.0); Mean Corpuscular Volume 89.6 fL (78.0-98.0); Mean Platelet Volume 13.3 fL (7.4-10.4); Platelet Count 45 10x3/uL (130-400); RBC Distribution Width 23.9 % (11.5-14.5); Red Blood Cell (RBC) Count 3.17 mill/uL (4.70-6.10)
[2024-10-04 17:39] LABS: Anisocytosis SLIGHT = 6-15 cells HPF (0-5); Platelet Adequacy Comment Platelets Decreased; Polychromasia MODERATE = 3-4 cells HPF (0-2); Target Cells MODERATE= 6-15 cells HPF (0-1)
[2024-10-04] MEDS ORDERED: Ondansetron PF 4 MG/2 ML Vial IVP PRN (18:28)
[2024-10-04] MEDS ORDERED: Lorazepam 2 MG/ML VIAL IM PRN (18:38)
[2024-10-04] MEDS ORDERED: Electrolyte Replacement Protocol FS SCH (18:45)
[2024-10-04 19:06] LABS: Lactic Acid 3.65 mmol/L (0.5-2.2)
[2024-10-04 19:13] LABS: ALT (SGPT) 78 U/L (8-55); AST (SGOT) 484 U/L (5-34); Albumin 1.9 g/dL (3.5-5.0); Alkaline Phosphatase 201 U/L (40-110); Anion Gap 15 mmol/L (10-20); BUN (Urea Nitrogen) 11 mg/dL (8.9-20.6); Bilirubin, Total 5.4 mg/dL (0.2-1.2); Calc. Creatinine Clearance 0 mL/min (70-130); Calcium 6.7 mg/dL (7.8-10.44); Carbon Dioxide 23 mmol/L (22-29); Chloride 93 mmol/L (98-107); Estimated GFR 110; Glucose 82 mg/dL (70-105); Phosphorus 2.7 mg/dL (2.3-4.7); Potassium 2.9 mmol/L (3.5-5.1); Protein, Total 5.9 g/dL (6.0-8.3); Sodium 128 mmol/L (136-145)
[2024-10-04 19:30] LABS: #Basophils Less than 0.03 10x3/uL (0.0-0.2); #Eosinophils Less than 0.03 10x3/uL (0.0-0.7); %Basophils 0.1 % (0.0-1.0); %Eosinophils 0.1 % (0.0-10.0); %Lymphocytes 12.2 % (21.0-51.0); %Monocytes 6.8 % (0.0-10.0); %Neutrophils 79.6 % (42.0-75.0); Hemoglobin 11.1 g/dL (14.0-18.0); Mean Corpuscular HGB CONC 39.6 g/dL (32.0-36.0); Mean Corpuscular Hemoglobin 36.2 pg (27.0-31.0); Mean Corpuscular Volume 91.2 fL (78.0-98.0); Platelet Count 42 10x3/uL (130-400); RBC Distribution Width 24.1 % (11.5-14.5); Red Blood Cell (RBC) Count 3.07 mill/uL (4.70-6.10)
[2024-10-04 19:50] VITALS: BMI 24.0
[2024-10-04] MEDS: Lorazepam 1 MG TAB PO SCH (20:10)
[2024-10-04] MEDS: Thiamine HCl 200 MG/2 ML VIAL SLOW IVP SCH (20:10)
[2024-10-04] MEDS: CALCIUM GLUC 1 GM/NS 50 ML 1 GM in Premix 1 BAG IVPB SCH (20:11)
[2024-10-04] MEDS: Nicotine 21 MG PATCH TD SCH (20:11)
[2024-10-04] MEDS: Famotidine/PF 20 mg/2ml Vial SLOW IVP SCH (20:31)
[2024-10-04] MEDS: Ketorolac Tromethamine 30 MG (1 mL) VIAL IVP PRN (20:31)
[2024-10-04] MEDS: Magnesium 2 GM/50 ML(in water) 2 GM in Premix 1 BAG IVPB SCH (21:18)
[2024-10-04] MEDS: Calcium Gluconate 4.6 MEQ in Sodium Chloride 0.9% 100 ML IVPB ONE (21:22)
[2024-10-04 21:28] LABS: Lactic Acid 3.46 mmol/L (0.5-2.2)
[2024-10-04] MEDS: Potassium Chloride 40 MEQ in Sodium Chloride 0.9% 250 ML 250 ML IVPB SCH (21:52)
[2024-10-05] MEDS: Cyclobenzaprine 10 MG TAB PO PRN (01:01)
[2024-10-05] MEDS: Potassium Chloride 20 MEQ in Lactated Ringer's 1,000 ML IV SCH ×2 (01:57→22:14)
[2024-10-05 06:09] LABS: ALT (SGPT) 89 U/L (8-55); AST (SGOT) 573 U/L (5-34); Albumin 2.1 g/dL (3.5-5.0); Alkaline Phosphatase 220 U/L (40-110); Anion Gap 19 mmol/L (10-20); BUN (Urea Nitrogen) 13 mg/dL (8.9-20.6); Bilirubin, Total 6.3 mg/dL (0.2-1.2); Calc. Creatinine Clearance 118 mL/min (70-130); Calcium 7.2 mg/dL (7.8-10.44); Carbon Dioxide 20 mmol/L (22-29); Chloride 97 mmol/L (98-107); Estimated GFR 109; Globulin 4.3 g/dL (2.4-3.5); Glucose 51 mg/dL (70-105); Potassium 4.6 mmol/L (3.5-5.1); Protein, Total 6.4 g/dL (6.0-8.3); Sodium 131 mmol/L (136-145)
[2024-10-05 06:11] LABS: Amphetamine Not Detected (NotDetected); Barbiturates Screen Not Detected (NotDetected); Benzodiazepine Screen Detected (NotDetected); Cocaine Metabolite Screen Not Detected (NotDetected); Methadone Not Detected (NotDetected); Methamphetamine Not Detected (NotDetected); Opiate Screen Not Detected (NotDetected); Oxycodone Screen Not Detected (NotDetected); Phencyclidine (PCP) Not Detected (NotDetected); THC/Cannabinoid Screen Not Detected (NotDetected); Tricyclic Screen Not Detected (NotDetected)
[2024-10-05 06:31] LABS: #Basophils Less than 0.03 10x3/uL (0.0-0.2); %Basophils 0.1 % (0.0-1.0); %Eosinophils 0.4 % (0.0-10.0); %Lymphocytes 8.9 % (21.0-51.0); %Monocytes 7.1 % (0.0-10.0); %Neutrophils 81.8 % (42.0-75.0); Hematocrit 30.5 % (42.0-52.0); Hemoglobin 11.7 g/dL (14.0-18.0); Mean Corpuscular HGB CONC 38.4 g/dL (32.0-36.0); Mean Corpuscular Hemoglobin 36.6 pg (27.0-31.0); Mean Corpuscular Volume 95.3 fL (78.0-98.0); Mean Platelet Volume 12.5 fL (7.4-10.4); Platelet Count 38 10x3/uL (130-400); RBC Distribution Width 25.1 % (11.5-14.5)
[2024-10-05] MEDS: Dextrose 50% Abboject 50 ML SYRINGE SLOW IVP SCH ×2 (06:39→07:56)
[2024-10-05 08:05] LABS: Lactic Acid 5.87 mmol/L (0.5-2.2)
[2024-10-05] MEDS: Escitalopram Oxalate 10 mg Tablet PO SCH (08:13)
[2024-10-05] MEDS: Multivit, Therapeutic 1 TAB PO SCH (08:14)
[2024-10-05] MEDS: Spironolactone 25 MG TAB PO SCH (08:14)
[2024-10-05] MEDS: Folic Acid 1 MG TAB PO SCH (08:14)
[2024-10-05] MEDS: Potassium Chloride 8 MEQ TAB PO SCH (08:14)
[2024-10-05] MEDS: clonazePAM 1 MG TAB PO SCH (08:15)
[2024-10-05] MEDS: FLU (Fluarix Triv) TS24-25(6MOS UP)/PF 45 MCG/0.5 ML Syringe IM ONE (08:20)
[2024-10-05] MEDS ORDERED: Multivit, Therapeutic 1 TAB PO SCH (09:00)
[2024-10-05] MEDS ORDERED: Folic Acid 1 MG TAB PO SCH (09:00)
[2024-10-05] MEDS ORDERED: Thiamine 100 MG TAB PO SCH (09:00)
[2024-10-05] MEDS: Lactated Ringer's 1,000 ML IV SCH (09:10)
[2024-10-05] MEDS: Lorazepam 1 MG TAB PO PRN (11:06)
[2024-10-05 11:14] LABS: Lactic Acid 5.52 mmol/L (0.5-2.2)
[2024-10-05 15:08] LABS: Lactic Acid 4.03 mmol/L (0.5-2.2)
[2024-10-05] MEDS: oxyCODONE 5 MG TAB PO PRN (15:53)
[2024-10-05 19:10] LABS: #Basophils Less than 0.03 10x3/uL (0.0-0.2); #Eosinophils Less than 0.03 10x3/uL (0.0-0.7); %Basophils 0.4 % (0.0-1.0); %Eosinophils 0.2 % (0.0-10.0); %Lymphocytes 12.1 % (21.0-51.0); %Monocytes 4.9 % (0.0-10.0); %Neutrophils 80.5 % (42.0-75.0); Hematocrit 27.4 % (42.0-52.0); Hemoglobin 10.9 g/dL (14.0-18.0); Mean Corpuscular HGB CONC 39.8 g/dL (32.0-36.0); Mean Corpuscular Hemoglobin 37.5 pg (27.0-31.0); Mean Corpuscular Volume 94.2 fL (78.0-98.0); Mean Platelet Volume 12.6 fL (7.4-10.4); Platelet Count 36 10x3/uL (130-400); RBC Distribution Width 25.8 % (11.5-14.5); Red Blood Cell (RBC) Count 2.91 mill/uL (4.70-6.10)
[2024-10-05] MEDS: Ondansetron ODT 4 MG TAB PO PRN (20:55)
[2024-10-05] MEDS: hydrOXYzine 25 MG TAB PO PRN (20:55)
[2024-10-05] MEDS ORDERED: Piperacillin/Tazobactam 4.5 GM in Sodium Chloride 0.9% 100 ML IVPB SCH (22:00)
[2024-10-05] MEDS: Acetaminophen 500 MG TAB PO PRN (22:02)
[2024-10-05] MEDS: Piperacillin/Tazobactam 3.375 GM in Sodium Chloride 0.9% 100 ML IVPB SCH (22:03)
[2024-10-05 22:04] LABS: Lactic Acid 2.92 mmol/L (0.5-2.2)
[2024-10-06] MEDS: Piperacillin/Tazobactam 3.375 GM in Sodium Chloride 0.9% 100 ML IVPB SCH (03:02)
[2024-10-06 05:52] LABS: Campy jejuni + coli by PCR Negative (Negative); STEC Shiga Toxin 1+2 Negative (Negative); Salmonella spp. by PCR Negative (Negative); Shigella spp + EIEC by PCR Negative (Negative)
[2024-10-06 05:57] LABS: #Basophils Less than 0.03 10x3/uL (0.0-0.2); #Eosinophils Less than 0.03 10x3/uL (0.0-0.7); %Basophils 0.4 % (0.0-1.0); %Eosinophils 0.4 % (0.0-10.0); %Lymphocytes 14.9 % (21.0-51.0); %Monocytes 5.5 % (0.0-10.0); %Neutrophils 76.8 % (42.0-75.0); Hematocrit 28.9 % (42.0-52.0); Hemoglobin 10.9 g/dL (14.0-18.0); Mean Corpuscular HGB CONC 37.7 g/dL (32.0-36.0); Mean Corpuscular Hemoglobin 35.7 pg (27.0-31.0); Mean Corpuscular Volume 94.8 fL (78.0-98.0); Platelet Count 27 10x3/uL (130-400); RBC Distribution Width 25.6 % (11.5-14.5); Red Blood Cell (RBC) Count 3.05 mill/uL (4.70-6.10)
[2024-10-06 06:06] LABS: INR-International Normal Ratio 1.3; Prothrombin Time 16.2 sec (12.0-14.7)
[2024-10-06 06:17] LABS: Anion Gap 13 mmol/L (10-20); BUN (Urea Nitrogen) 11 mg/dL (8.9-20.6); Calc. Creatinine Clearance 133 mL/min (70-130); Calcium 7.3 mg/dL (7.8-10.44); Carbon Dioxide 21 mmol/L (22-29); Chloride 104 mmol/L (98-107); Estimated GFR 113; Glucose 84 mg/dL (70-105); Iron 118 ug/dL (65-175); Iron Binding Capacity, Total 114 mcg/dL (261-462); Potassium 4.5 mmol/L (3.5-5.1); Sodium 133 mmol/L (136-145)
[2024-10-06 06:35] LABS: Immunoglob - M (Total IgM) 200 mg/dL (22-240)
[2024-10-06 07:57] LABS: Immunoglob - G (Total IgG) 1865 mg/dL (540-1822)
[2024-10-06 10:15] LABS: Lactic Acid 1.97 mmol/L (0.5-2.2)
[2024-10-06 10:20] LABS: ALT (SGPT) 81 U/L (8-55); AST (SGOT) 485 U/L (5-34); Alkaline Phosphatase 195 U/L (40-110); Bilirubin, Direct 5.4 mg/dL (0.1-0.3); Bilirubin, Total 8.3 mg/dL (0.2-1.2); Protein, Total 6.1 g/dL (6.0-8.3)
[2024-10-06] MEDS: Pantoprazole 40 MG VIAL IVP SCH (11:11)
[2024-10-06] MEDS: THREONINE MC SCH (11:52)
[2024-10-06] MEDS: Lorazepam 1 MG TAB PO PRN (12:11)
[2024-10-06 14:15] LABS: Hematocrit 29.5 % (42.0-52.0); Hemoglobin 11.1 g/dL (14.0-18.0); Platelet Count 31 10x3/uL (130-400)
[2024-10-06] MEDS: Vancomycin HCl 125 MG Capsule PO SCH (16:23)
[2024-10-06] MEDS ORDERED: Lorazepam 1 MG TAB PO PRN (18:38)
[2024-10-06] MEDS: Lorazepam 2 MG/ML VIAL SLOW IVP SCH (19:59)
[2024-10-06] MEDS: Lactated Ringer's 1,000 ML IV SCH (20:52)
[2024-10-06] MEDS: Lorazepam 0.5 MG TAB PO SCH (21:50)
[2024-10-06] MEDS ORDERED: Dexmedetomidine In 0.9 % NaCl 100 ML IVPB SCH (22:00)
[2024-10-07] MEDS ORDERED: Nicotine 21 MG PATCH ONE ×2 (21:30)
[2024-10-07] MEDS ORDERED: Thiamine 100 MG TAB ONE ×2 (21:30)
[2024-10-07] MEDS ORDERED: Vancomycin HCl 125 MG Capsule ONE ×3 (21:30→21:32)
[2024-10-08] MEDS ORDERED: Lactated Ringer's 1,000 ML BAG ONE ×2 (01:00→09:29)
[2024-10-08] MEDS ORDERED: Piperacillin/Tazobactam 3.375 GM VIAL ONE ×4 (02:42→09:29)
[2024-10-08] MEDS ORDERED: Vancomycin HCl 125 MG Capsule ONE ×3 (04:24→14:02)
[2024-10-08] MEDS ORDERED: clonazePAM 1 MG TAB ONE ×2 (09:29)
[2024-10-08] MEDS ORDERED: Multivit, Therapeutic 1 TAB ONE ×2 (09:29)
[2024-10-08] MEDS ORDERED: Pantoprazole DR 40 MG TAB ONE (09:29)
[2024-10-08] MEDS ORDERED: Spironolactone 25 MG TAB ONE ×2 (09:29)
[2024-10-08] MEDS ORDERED: Folic Acid 1 MG TAB ONE ×2 (09:29)
[2024-10-08] MEDS ORDERED: Escitalopram Oxalate 10 mg Tablet ONE ×2 (09:29)
[2024-10-08] MEDS ORDERED: Pantoprazole 40 MG VIAL ONE (09:29)
[2024-10-08] MEDS ORDERED: Midodrine HCl 5 MG TAB ONE (14:02)
[2024-10-08] MEDS ORDERED: Lorazepam 0.5 MG TAB ONE (14:02)
[2024-10-08] MEDS: Thiamine 100 MG TAB PO SCH (15:59)
[2024-10-08 17:27] LABS: Adenovirus F 40-41 Not Detected (Not Detected); Astrovirus Not Detected (Not Detected); C. difficile toxin A+B DETECTED (Not Detected); Campylobacter by PCR Not Detected (Not Detected); Cryptosporidium Not Detected (Not Detected); Cyclospora cayetanensis Not Detected (Not Detected); Entamoeba histolytica Not Detected (Not Detected); Enteroaggregative E. coli Not Detected (Not Detected); Enteropathogenic E. coli Not Detected (Not Detected); Enterotoxigenic E. coli Not Detected (Not Detected); Giardia lamblia Not Detected (Not Detected); Norovirus GI-GII Not Detected (Not Detected); Plesiomonas shigelloides Not Detected (Not Detected); Rotavirus A Not Detected (Not Detected); Salmonella Not Detected (Not Detected); Sapovirus Not Detected (Not Detected); Shiga-toxin-producing E coli Not Detected (Not Detected); Shigella/Enteroinvasive E coli Not Detected (Not Detected); Vibrio Not Detected (Not Detected); Vibrio cholerae Not Detected (Not Detected); Yersinia enterocolitica Not Detected (Not Detected)
[2024-10-08] MEDS: Midodrine HCl 5 MG TAB ONE ×2 (20:12→22:23)
[2024-10-08] MEDS: Lorazepam 0.5 MG TAB PO PRN (20:26)
[2024-10-09] MEDS ORDERED: HYDROcodone/Acetaminophen 5/325 mg Tablet PO PRN (04:52)
[2024-10-09] MEDS ORDERED: Potassium Chloride 20 MEQ TAB PO SCH (05:00)
[2024-10-09 05:02] LABS: #Basophils 0.03 10x3/uL (0.0-0.2); %Basophils 0.6 % (0.0-1.0); %Eosinophils 0.7 % (0.0-10.0); %Lymphocytes 28.7 % (21.0-51.0); %Monocytes 12.7 % (0.0-10.0); Hemoglobin 10.8 g/dL (14.0-18.0); Mean Corpuscular HGB CONC 37.2 g/dL (32.0-36.0); Mean Corpuscular Hemoglobin 36.5 pg (27.0-31.0); Platelet Count 32 10x3/uL (130-400); RBC Distribution Width 25.8 % (11.5-14.5); Red Blood Cell (RBC) Count 2.96 mill/uL (4.70-6.10)
[2024-10-09 05:15] LABS: ALT (SGPT) 71 U/L (8-55); AST (SGOT) 340 U/L (5-34); Albumin 1.7 g/dL (3.5-5.0); Alkaline Phosphatase 145 U/L (40-110); Anion Gap 11 mmol/L (10-20); BUN (Urea Nitrogen) 4 mg/dL (8.9-20.6); Bilirubin, Total 7.4 mg/dL (0.2-1.2); Calc. Creatinine Clearance 156 mL/min (70-130); Calcium 7.2 mg/dL (7.8-10.44); Carbon Dioxide 21 mmol/L (22-29); Chloride 106 mmol/L (98-107); Estimated GFR 119; Globulin 3.9 g/dL (2.4-3.5); Glucose 77 mg/dL (70-105); Potassium 3.2 mmol/L (3.5-5.1); Protein, Total 5.6 g/dL (6.0-8.3); Sodium 135 mmol/L (136-145)
[2024-10-09] MEDS: Potassium Chloride 20 MEQ in Premix 1 BAG IVPB SCH (06:05)
[2024-10-09] MEDS: Midodrine HCl 5 MG TAB PO SCH (08:57)
[2024-10-09] MEDS ORDERED: Aspirin 81 mg Enteric Coated Tablet PO SCH (09:00)
[2024-10-09] MEDS ORDERED: Magnesium Oxide 400 MG TAB PO SCH (09:00)
[2024-10-09] MEDS ORDERED: Digoxin 0.125 MG TAB PO SCH (09:00)
[2024-10-09] MEDS ORDERED: OXcarbazepine 150 MG TAB PO SCH (09:00)
[2024-10-09] MEDS ORDERED: Multivitamin W/ Minerals 1 TAB PO SCH (09:00)
[2024-10-09] MEDS: Lactated Ringer's 1,000 ML IV SCH (16:08)
[2024-10-09] MEDS ORDERED: Atorvastatin Calcium 40 MG TAB PO SCH (21:00)
[2024-10-10 07:42] LABS: ALT (SGPT) 64 U/L (8-55); AST (SGOT) 276 U/L (5-34); Albumin 1.6 g/dL (3.5-5.0); Alkaline Phosphatase 138 U/L (40-110); Anion Gap 9 mmol/L (10-20); BUN (Urea Nitrogen) Less than 4 mg/dL (8.9-20.6); Calc. Creatinine Clearance 182 mL/min (70-130); Calcium 7.1 mg/dL (7.8-10.44); Carbon Dioxide 19 mmol/L (22-29); Chloride 107 mmol/L (98-107); Estimated GFR 120; Globulin 3.7 g/dL (2.4-3.5); Glucose 72 mg/dL (70-105); Potassium 3.3 mmol/L (3.5-5.1); Protein, Total 5.3 g/dL (6.0-8.3); Sodium 132 mmol/L (136-145)
[2024-10-10 08:03] LABS: Hematocrit 29.1 % (42.0-52.0); Hemoglobin 10.4 g/dL (14.0-18.0); Mean Corpuscular HGB CONC 35.7 g/dL (32.0-36.0); Mean Corpuscular Hemoglobin 35.9 pg (27.0-31.0); Mean Corpuscular Volume 100.3 fL (78.0-98.0); Platelet Count 35 10x3/uL (130-400); RBC Distribution Width 26.4 % (11.5-14.5)
[2024-10-10 08:40] LABS: Anisocytosis MARKED = >30 cells HPF (0-5); Band 3 % (5-11); Large Platelets 4.3 % (0-5); Lymphocytes 11 % (21-51); Macrocytosis MARKED = >30 cells HPF (0-5); Monocytes 6 % (0-10); Neutrophil 76 % (42-75); Platelet Adequacy Comment Significant Decrease; Poikilocytosis MODERATE=16-30 cells HPF (0-5); Polychromasia MODERATE = 3-4 cells HPF (0-2); Reactive Lymphocytes 3 % (0-10); Target Cells MODERATE= 6-15 cells HPF (0-1)
[2024-10-10] MEDS: Potassium Chloride 20 MEQ TAB PO SCH (09:56)
[2024-10-10] MEDS ORDERED: Simethicone Chewable 80 MG TAB PO PRN (13:24)
[2024-10-10 18:03] VITALS: BMI 27.5
[2024-10-11 03:12] LABS: Hematocrit 29.5 % (42.0-52.0); Hemoglobin 10.5 g/dL (14.0-18.0); Mean Corpuscular HGB CONC 35.6 g/dL (32.0-36.0); Mean Corpuscular Hemoglobin 36.2 pg (27.0-31.0); Mean Corpuscular Volume 101.7 fL (78.0-98.0); Mean Platelet Volume 12.3 fL (7.4-10.4); Platelet Count 42 10x3/uL (130-400); RBC Distribution Width 26.4 % (11.5-14.5)
[2024-10-11 03:39] LABS: Band 2 % (5-11); Burr Cells SLIGHT = 2-5 cells HPF (0-1); Large Platelets 10.2 % (0-5); Lymphocytes 7 % (21-51); Macrocytosis SLIGHT = 6-15 cells HPF (0-5); Metamyelocyte 1 % (0-0); Monocytes 6 % (0-10); Myelocyte 3 % (0-0); Neutrophil 81 % (42-75); Platelet Adequacy Comment Platelets Decreased; Polychromasia SLIGHT = 2-3 cells HPF (0-2); Smudge Cells 76.5 %; Target Cells SLIGHT = 2-5 cells HPF (0-1)
[2024-10-11 03:54] LABS: ALT (SGPT) 61 U/L (8-55); AST (SGOT) 244 U/L (5-34); Albumin 1.6 g/dL (3.5-5.0); Alkaline Phosphatase 140 U/L (40-110); Anion Gap 11 mmol/L (10-20); BUN (Urea Nitrogen) Less than 4 mg/dL (8.9-20.6); Bilirubin, Total 6.6 mg/dL (0.2-1.2); Calc. Creatinine Clearance 185 mL/min (70-130); Calcium 7.2 mg/dL (7.8-10.44); Carbon Dioxide 18 mmol/L (22-29); Chloride 107 mmol/L (98-107); Estimated GFR 120; Globulin 3.7 g/dL (2.4-3.5); Glucose 75 mg/dL (70-105); Potassium 3.3 mmol/L (3.5-5.1); Protein, Total 5.3 g/dL (6.0-8.3); Sodium 133 mmol/L (136-145)
[2024-10-11] MEDS: Potassium Chloride 20 MEQ TAB PO SCH (08:31)
[2024-10-12 06:54] LABS: ALT (SGPT) 61 U/L (8-55); AST (SGOT) 228 U/L (5-34); Albumin 1.6 g/dL (3.5-5.0); Alkaline Phosphatase 140 U/L (40-110); Anion Gap 9 mmol/L (10-20); BUN (Urea Nitrogen) Less than 4 mg/dL (8.9-20.6); Bilirubin, Total 6.2 mg/dL (0.2-1.2); Calc. Creatinine Clearance 186 mL/min (70-130); Calcium 7.5 mg/dL (7.8-10.44); Carbon Dioxide 18 mmol/L (22-29); Chloride 108 mmol/L (98-107); Estimated GFR 120; Globulin 3.9 g/dL (2.4-3.5); Glucose 88 mg/dL (70-105); Potassium 3.3 mmol/L (3.5-5.1); Protein, Total 5.5 g/dL (6.0-8.3); Sodium 132 mmol/L (136-145)
[2024-10-12 07:59] LABS: Hematocrit 28.5 % (42.0-52.0); Hemoglobin 10.1 g/dL (14.0-18.0); Mean Corpuscular HGB CONC 35.4 g/dL (32.0-36.0); Mean Corpuscular Hemoglobin 36.5 pg (27.0-31.0); Mean Corpuscular Volume 102.9 fL (78.0-98.0); Mean Platelet Volume 11.3 fL (7.4-10.4); Platelet Count 51 10x3/uL (130-400); RBC Distribution Width 26.5 % (11.5-14.5); Red Blood Cell (RBC) Count 2.77 mill/uL (4.70-6.10)
[2024-10-12] MEDS ORDERED: Sodium Bicarbonate 2.5 MEQ/5 ML SDV ONE (08:33)
[2024-10-12] MEDS ORDERED: Lidocaine 1% PF 5 ML VIAL ONE (08:33)
[2024-10-12 09:05] LABS: Anisocytosis MARKED = >30 cells HPF (0-5); Burr Cells SLIGHT = 2-5 cells HPF (0-1); Hypersegmented Neutrophil SLIGHT (None Seen); Large Platelets 6.1 % (0-5); Lymphocytes 10 % (21-51); Macrocytosis SLIGHT = 6-15 cells HPF (0-5); Monocytes 13 % (0-10); Neutrophil 71 % (42-75); Platelet Adequacy Comment Significant Decrease; Polychromasia SLIGHT = 2-3 cells HPF (0-2); Target Cells MODERATE= 6-15 cells HPF (0-1)
[2024-10-12] MEDS: Potassium Bicarbonate/Cit Ac 20 MEQ TAB PO SCH (10:13)
[2024-10-12 11:19] LABS: Potassium 4.3 mmol/L (3.5-5.1)
[2024-10-12] MEDS: Potassium Chloride 20 MEQ TAB PO SCH (15:47)
[2024-10-12 18:22] LABS: RBC Count-Automated (BF) 11 /cu.mm; WBC/Nucleated-Auto (BF) 80 /cu.mm
[2024-10-12 18:24] LABS: BF Color Yellow; Body Fluid Source Ascites Body Fluid; Clarity Clear (Clear); Tube # EDTA
[2024-10-12 18:55] LABS: Magnesium 1.5 mg/dL (1.6-2.6)
[2024-10-12 19:36] LABS: BF Segmented Neutrophils 4 %; Cell Count Non Hematic 87 %; Lymphocytes 9 %
[2024-10-12] MEDS: Magnesium 2 GM/50 ML(in water) 2 GM in Premix 1 BAG IVPB SCH (20:46)
[2024-10-13 06:45] LABS: Hematocrit 27.5 % (42.0-52.0); Hemoglobin 9.7 g/dL (14.0-18.0); Mean Corpuscular HGB CONC 35.3 g/dL (32.0-36.0); Mean Corpuscular Hemoglobin 36.6 pg (27.0-31.0); Mean Corpuscular Volume 103.8 fL (78.0-98.0); Mean Platelet Volume 12.3 fL (7.4-10.4); Platelet Count 59 10x3/uL (130-400); RBC Distribution Width 26.5 % (11.5-14.5); Red Blood Cell (RBC) Count 2.65 mill/uL (4.70-6.10)
[2024-10-13 07:03] LABS: ALT (SGPT) 55 U/L (8-55); AST (SGOT) 203 U/L (5-34); Albumin 1.5 g/dL (3.5-5.0); Alkaline Phosphatase 132 U/L (40-110); Anion Gap 8 mmol/L (10-20); BUN (Urea Nitrogen) Less than 4 mg/dL (8.9-20.6); Bilirubin, Total 6.2 mg/dL (0.2-1.2); Calc. Creatinine Clearance 183 mL/min (70-130); Calcium 7.3 mg/dL (7.8-10.44); Carbon Dioxide 20 mmol/L (22-29); Chloride 108 mmol/L (98-107); Estimated GFR 122; Globulin 3.8 g/dL (2.4-3.5); Glucose 94 mg/dL (70-105); Magnesium 1.8 mg/dL (1.6-2.6); Potassium 3.9 mmol/L (3.5-5.1); Protein, Total 5.3 g/dL (6.0-8.3); Sodium 132 mmol/L (136-145)
[2024-10-13 08:24] LABS: Anisocytosis MARKED = >30 cells HPF (0-5); Burr Cells SLIGHT = 2-5 cells HPF (0-1); Macrocytosis MODERATE=16-30 cells HPF (0-5); Platelet Adequacy Comment Platelets Decreased; Polychromasia MODERATE = 3-4 cells HPF (0-2); Schistocytes SLIGHT = 2-5 cells HPF (0-1); Target Cells MODERATE= 6-15 cells HPF (0-1)
[2024-10-13] MEDS: Saccharomyces boulardii 250 MG CAP PO SCH (08:43)
[2024-10-13] MEDS: Magnesium 2 GM/50 ML(in water) 2 GM in Premix 1 BAG IVPB SCH (08:45)
[2024-10-13 11:37] LABS: ANA Symphony (Qualitative) Negative (Negative); ANA Symphony (Quantitative) 0.2 Ratio (< 0.7 Negative); EliA Vaculitis New Method **** NEW METHOD ****; Mitochondrial Ab 0.8 U/mL (<4 Negative); dsDNA IgG Antibody Less than 0.6 IU/mL (<10 Negative)
[2024-10-14 15:44] VITALS: BP 121/77; TEMP 97.6
[2024-10-17 11:14] LABS: Anion Gap 13 mmol/L (10-20); BUN (Urea Nitrogen) 7 mg/dL (8.9-20.6); Carbon Dioxide 21 mmol/L (22-29); Chloride 108 mmol/L (98-107); Potassium 3.5 mmol/L (3.5-5.1); Sodium 138 mmol/L (136-145)
[2024-10-17 11:19] LABS: Hematocrit 27.1 % (42.0-52.0); Mean Corpuscular HGB CONC 36.9 g/dL (32.0-36.0); Mean Corpuscular Hemoglobin 35.5 pg (27.0-31.0); Mean Corpuscular Volume 96.1 fL (78.0-98.0); RBC Distribution Width 25.2 % (11.5-14.5); Red Blood Cell (RBC) Count 2.82 mill/uL (4.70-6.10)
[2024-10-17 11:25] LABS: Albumin 1.8 g/dL (3.5-5.0); Bilirubin, Total 7.7 mg/dL (0.2-1.2); Calcium 7.3 mg/dL (7.6-10.4); Estimated GFR 115; Globulin 3.7 g/dL (2.4-3.5); Glucose 67 mg/dL (70-105); Protein, Total 5.5 g/dL (6.0-8.3)
[2024-10-17 11:26] LABS: ALT (SGPT) 66 U/L (8-55); AST (SGOT) 391 U/L (5-34); Alkaline Phosphatase 153 U/L (40-110)
[2024-10-17 11:46] LABS: Lymphocytes 4 % (21-51); Monocytes 7 % (0-10); Neutrophil 89 % (42-75)
[2024-10-17 11:47] LABS: Anisocytosis SLIGHT = 6-15 cells (100X) (0-5/hpf)
[2024-10-17 11:48] LABS: Polychromasia SLIGHT = 2-3 cells (100X) (0-2/hpf); Target Cells MODERATE= 6-15 cells (100X) (0-1/hpf)
[2024-10-17 11:49] LABS: Platelet Adequacy Comment Significant decrease
[2024-10-17 11:51] LABS: Platelet Count 25 10x3/uL (130-400)
[2024-10-17 15:36] LABS: Calc. Creatinine Clearance 139 mL/min (70-130)
[2024-10-17 15:43] LABS: Large Platelets 7.9 (None Seen)
== END 2024-10-14 15:47 | disposition home or self-care (01) | DRG 433 ==
LOC: ERS 14:21 → T4-B 18:00 → 2NO 10-06 12:45 → CCU 10-06 20:22 → IMCU/EMU 10-08 20:10 → T4-A 10-09 20:12
PROVIDERS: ADMIT Family Medicine; ATTEND Internal Medicine
PROC: 3E02340 Introduction of Influenza Vaccine into Muscle, Percutaneous Approach (ICD-10-PCS; 2024-10-05)
PROC: 30233N1 Transfusion of Nonautologous Red Blood Cells into Peripheral Vein, Percutaneous Approach (ICD-10-PCS; 2024-10-07)
PROC: 0W9G3ZZ Drainage of Peritoneal Cavity, Percutaneous Approach (ICD-10-PCS; principal; 2024-10-12)
DX: K70.31 Alcoholic cirrhosis of liver with ascites (principal); A04.72 Enterocolitis due to Clostridium difficile, not specified as recurrent; E87.1 Hypo-osmolality and hyponatremia; E87.21 Acute metabolic acidosis; K92.1 Melena; F10.139 Alcohol abuse with withdrawal, unspecified; E86.0 Dehydration; K70.11 Alcoholic hepatitis with ascites; G40.909 Epilepsy, unspecified, not intractable, without status epilepticus; F17.210 Nicotine dependence, cigarettes, uncomplicated; F41.9 Anxiety disorder, unspecified; F32.A Depression, unspecified; G89.29 Other chronic pain; M54.9 Dorsalgia, unspecified; E87.6 Hypokalemia; Z66 Do not resuscitate; D69.59 Other secondary thrombocytopenia; Z23 Encounter for immunization; Z88.5 Allergy status to narcotic agent; Z79.899 Other long term (current) drug therapy; Y90.8 Blood alcohol level of 240 mg/100 ml or more
CPT/HCPCS: 36415; 36416; 36430; 49083; 74174; 74177; 76705; 78226; 80048; 80053; 80076; 80306; 80307; 82042; 82103; 82105; 82248; 82310; 82390; 82525; 82550; 82728; 83516; 83540; 83550; 83605; 83630; 83690; 83735; 84100; 84157; 85025; 85060; 85610; 86015; 86038; 86225; 86850; 86870; 86900; 86901; 86905; 86922; 87040; 87070; 87205; 87324; 87449; 87505; 87507; 88112; 88305; 89051; 93005; 96361; 96365; 96375; A9537; J0613; J0696; J1885; J2060; J2405; J2470; J2543; J3411; J3475; J3480; J3490; J7050; J7120; J7999; P9016; Q0162; Q9967

== ENCOUNTER 2024-11-05 12:42 | Emergency (ER) | payer OTHER ==
[2024-11-05 14:09] LABS: #Basophils Less than 0.03 10x3/uL (0.0-0.2); %Basophils 0.4 % (0.0-1.0); %Eosinophils 3.2 % (0.0-10.0); %Lymphocytes 24.1 % (21.0-51.0); %Monocytes 15.6 % (0.0-10.0); %Neutrophils 56.7 % (42.0-75.0); Hematocrit 29.1 % (42.0-52.0); Hemoglobin 9.6 g/dL (14.0-18.0); Mean Corpuscular Hemoglobin 37.1 pg (27.0-31.0); Mean Corpuscular Volume 112.4 fL (78.0-98.0); Mean Platelet Volume 9.4 fL (7.4-10.4); Platelet Count 172 10x3/uL (130-400); RBC Distribution Width 14.6 % (11.5-14.5); Red Blood Cell (RBC) Count 2.59 mill/uL (4.70-6.10)
[2024-11-05 14:15] LABS: INR-International Normal Ratio 1.1; Prothrombin Time 14.5 sec (12.0-14.7)
[2024-11-05 14:16] LABS: PTT 39.6 sec (22.9-36.1)
[2024-11-05 14:21] LABS: Acetaminophen Less than 10 mcg/mL (Less than 10); Alcohol Less than 10.0 mg/dL (Less than 10); Salicylate Less than 8.0 mg/dL (Less than 8.0)
[2024-11-05 14:22] LABS: ALT (SGPT) 14 U/L (8-55); AST (SGOT) 43 U/L (5-34); Albumin 1.9 g/dL (3.5-5.0); Alkaline Phosphatase 98 U/L (40-110); Anion Gap 10 mmol/L (10-20); BUN (Urea Nitrogen) Less than 4 mg/dL (8.9-20.6); Bilirubin, Total 1.8 mg/dL (0.2-1.2); Calc. Creatinine Clearance 0 mL/min (70-130); Calcium 8.2 mg/dL (7.8-10.44); Carbon Dioxide 20 mmol/L (22-29); Chloride 106 mmol/L (98-107); Estimated GFR 121; Globulin 4.8 g/dL (2.4-3.5); Glucose 75 mg/dL (70-105); Lipase 19 U/L (8-78); Protein, Total 6.7 g/dL (6.0-8.3); Sodium 132 mmol/L (136-145)
[2024-11-05 15:25] LABS: WBC/Nucleated-Auto (BF) 262 /cu.mm
[2024-11-05 15:45] LABS: BF Color Yellow; Body Fluid Source Paracentesis Fluid; Clarity Clear (Clear); RBC Count-Automated (BF) 36 /cu.mm; Tube # EDTA
[2024-11-05 15:46] LABS: BF Segmented Neutrophils 8 %; Cell Count Non Hematic 84 %; Lymphocytes 8 %
== END 2024-11-05 16:20 | disposition home or self-care (01) ==
LOC: ERS 12:42
DX: K70.31 Alcoholic cirrhosis of liver with ascites (principal); F10.10 Alcohol abuse, uncomplicated; F17.210 Nicotine dependence, cigarettes, uncomplicated
CPT/HCPCS: 36415; 49082; 71045; 74177; 80053; 80307; 82945; 83615; 83690; 84157; 85025; 85060; 85610; 85730; 87070; 87205; 89051

== ENCOUNTER 2024-11-09 01:20 | Emergency (ER) | payer OTHER ==
[2024-11-09] MEDS ORDERED: Lorazepam 1 MG TAB ONE (02:35)
[2024-11-09 02:52] LABS: #Basophils Less than 0.03 10x3/uL (0.0-0.2); %Basophils 0.4 % (0.0-1.0); %Eosinophils 2.6 % (0.0-10.0); %Lymphocytes 23.7 % (21.0-51.0); %Monocytes 13.1 % (0.0-10.0); Hematocrit 27.1 % (42.0-52.0); Mean Corpuscular HGB CONC 33.2 g/dL (32.0-36.0); Mean Corpuscular Hemoglobin 36.4 pg (27.0-31.0); Mean Corpuscular Volume 109.7 fL (78.0-98.0); Mean Platelet Volume 9.4 fL (7.4-10.4); Platelet Count 170 10x3/uL (130-400); Red Blood Cell (RBC) Count 2.47 mill/uL (4.70-6.10)
[2024-11-09 03:10] LABS: Acetaminophen 19 mcg/mL (Less than 10); Alcohol Less than 10.0 mg/dL (Less than 10); Salicylate Less than 8.0 mg/dL (Less than 8.0)
[2024-11-09 03:11] LABS: ALT (SGPT) 13 U/L (8-55); AST (SGOT) 34 U/L (5-34); Albumin 2.1 g/dL (3.5-5.0); Alkaline Phosphatase 99 U/L (40-110); Anion Gap 11 mmol/L (10-20); BUN (Urea Nitrogen) Less than 4 mg/dL (8.9-20.6); Bilirubin, Total 1.5 mg/dL (0.2-1.2); Calc. Creatinine Clearance 0 mL/min (70-130); Calcium 8.2 mg/dL (7.8-10.44); Carbon Dioxide 21 mmol/L (22-29); Chloride 108 mmol/L (98-107); Estimated GFR 118; Globulin 4.5 g/dL (2.4-3.5); Glucose 112 mg/dL (70-105); Potassium 3.4 mmol/L (3.5-5.1); Protein, Total 6.6 g/dL (6.0-8.3); Sodium 137 mmol/L (136-145)
[2024-11-09 05:00] LABS: Amphetamine Not Detected (NotDetected); Barbiturates Screen Not Detected (NotDetected); Benzodiazepine Screen Not Detected (NotDetected); Cocaine Metabolite Screen Not Detected (NotDetected); Methadone Not Detected (NotDetected); Methamphetamine Not Detected (NotDetected); Opiate Screen Not Detected (NotDetected); Oxycodone Screen Not Detected (NotDetected); Phencyclidine (PCP) Not Detected (NotDetected); THC/Cannabinoid Screen Not Detected (NotDetected); Tricyclic Screen Not Detected (NotDetected)
[2024-11-09 05:03] LABS: Bacteria/HPF None Seen HPF (None Seen); Bilirubin Negative (Negative); Blood, Urine Negative (Negative); CAUTI Indications for Culture Fever or rigors; Clarity Turbid (Clear); Glucose, Urine (Dipstick) Normal (Negative); Ketone, Urine Negative (Negative); Leukocyte 75 Leu/uL (Negative); Nitrite Negative (Negative); Protein, Urine (Dipstick) Negative (Neg-Trace); RBC/HPF 0-3 HPF (0-3); Specific Gravity, Urine 1.012 (1.002-1.036); Squamous Epithelial 0-3 HPF (0-3); Urobilinogen Normal mg/dL (Less than 2); WBC/HPF 21-50 HPF (0-3); pH, Urine 7.5 (5.0-9.0)
[2024-11-09 05:05] LABS: Urine Culture Reflex Yes Yes
== END 2024-11-09 06:30 | disposition home or self-care (01) ==
LOC: ERS 01:20
DX: F43.0 Acute stress reaction (principal); F17.210 Nicotine dependence, cigarettes, uncomplicated
CPT/HCPCS: 36415; 80053; 80306; 80307; 81001; 82140; 85025; 87086; 93005; 99285